=== PATIENT | male | born 1995 | race Hispanic/Latino ===

== ENCOUNTER 2019-10-12 20:06 | Emergency (ER) | payer OTHER ==
[~2019-10-12] VITALS: Ht 172.7 cm; Wt 98.0 kg
[2019-10-12] MEDS ORDERED: SODIUM CHLORIDE 0.9% 1000ML 1,000 ML ONE ×2 (20:36→21:59)
[2019-10-12] MEDS ORDERED: SODIUM CHLORIDE 0.9% 1000ML 1,000 ML IV SCH ×2 (21:45→22:00)
--- NOTE | 2019-10-12 22:21 | NUR ---
PT UP FOR 4TH TIME TO TRY TO OBTAIN UA SPECIMEN
--- NOTE | 2019-10-12 22:47 | Diagnostic Imaging Report ---
EXAMINATION: CXR 2 VIEW - HOPD INDICATION: Palpitations. COMPARISON: None FINDINGS: TUBES and LINES: None. LUNGS: Low lung volumes with vascular crowding. There is no evidence of pneumonia or pulmonary edema. PLEURA: No pleural effusion or pneumothorax. HEART AND MEDIASTINUM: The cardiomediastinal silhouette is unremarkable. BONES AND SOFT TISSUES: No acute osseous lesion. Soft tissues are unremarkable. UPPER ABDOMEN: No free air under the diaphragm. IMPRESSION: No acute thoracic abnormality. Signed by: Dr. Sofiya Wheat MD on 10/12/2019 10:43 PM
--- NOTE | 2019-10-12 23:00 | NUR ---
REPEAT EKG DONE AND GIVEN TO
[2019-10-12 23:16] VITALS: BP 129/73
--- NOTE | 2019-10-12 23:17 | NUR ---
IN GIVING PT TEST RESULTS,SAAD INST.
== END 2019-10-12 23:17 | disposition home or self-care (01) ==
LOC: FSED 20:06
DX: R00.2 Palpitations (principal); R00.0 Tachycardia, unspecified; E86.0 Dehydration; R94.5 Abnormal results of liver function studies
CPT/HCPCS: 71046; 80048; 80076; 80307; 81003; 82553; 84484; 85025; 85379; 99284; J7030; 93005

== ENCOUNTER 2020-07-26 15:05 | Emergency (ER) | payer SELFPAY ==
[~2020-07-26] VITALS: Ht 172.7 cm; Wt 102.1 kg
[2020-07-26] MEDS ORDERED: THERAFLU NIGHT1 EAC5 PO (15:39)
[2020-07-26] MEDS ORDERED: AZITHROMYCIN250 MG PO (15:39)
[2020-07-26] MEDS ORDERED: TESSALON PERLE100 MG PO (15:39)
[2020-07-26] MEDS ORDERED: DECADRON6 MG PO (15:39)
== END 2020-07-26 15:40 | disposition home or self-care (01) ==
LOC: FSED 15:23
DX: U07.1 COVID-19 (principal); R05 Cough; R06.02 Shortness of breath; Z71.89 Other specified counseling; F17.210 Nicotine dependence, cigarettes, uncomplicated
CPT/HCPCS: 99282